=== PATIENT | male | born 1970 | race Caucasian/White ===

== ENCOUNTER 2024-07-17 20:38 | Emergency (ER) | payer SELFPAY ==
[2024-07-17 20:41] VITALS: BP 140/81
[2024-07-17 20:45] VITALS: BMI 15.7
[2024-07-17 20:45] LABS: Glucose - Point of Care 194 mg/dl (70-99)
[2024-07-17 21:00] VITALS: BP 140/81
[2024-07-17 21:15] LABS: Glucose - Point of Care 244 mg/dl (70-99)
[2024-07-17 21:42] LABS: % Basophils 0.3 % (0-2); % Eosinophils 1.3 % (0-6); % Immature Granulocytes 0.4 % (0-0.5); % Lymphocytes 5.9 % (20.5-51.1); % Monocytes 4.2 % (1.7-9.3); % Neutrophils 87.9 % (42.2-75.2); Absolute Eosinophils 0.2 10^3/uL (0-0.7); Absolute Immature Granulocytes 0.1 10^3/uL (0-0.05); Absolute Lymphocytes 0.8 10^3/uL (1.2-3.4); Absolute Monocytes 0.6 10^3/uL (0.1-0.6); Absolute Neutrophils 12.4 10^3/uL (1.4-6.5); Mean Corp Hgb Conc. 32.5 g/dL (33.0-37.0); Mean Corpuscular Hgb 29.9 pg (27.0-31.0); Mean Platelet Volume 9.7 fL (7.4-10.4); Nucleated Red Blood Cells % 0 % (-); Platelet Count 274 10^3/uL (130-400); Red Blood Cell Count 4.35 10^6/uL (4.70-6.10); Red Cell Dist. Width 12.9 % (11.5-14.5); White Blood Cell Count 14.2 10^3/uL (4.8-10.8)
[2024-07-17 21:59] LABS: ALT (SGPT) 14 U/L (0-50); AST (SGOT) 19 U/L (17-59); Alkaline Phosphatase 94 U/L (38-126); Blood Urea Nitrogen 21 mg/dl (9-20); Carbon Dioxide 23 mmol/L (22-30); Chloride 102 mmol/L (98-107); Estimated Creatinine Clearance 62 ml/min; Glucose 204 mg/dl (70-99); Sodium 135 mmol/L (135-145); Total Bilirubin 0.4 mg/dl (0.2-1.3); Total Protein 6.5 g/dl (6.3-8.2); eGFR > 60.00
[2024-07-17 22:00] VITALS: BP 158/79
[2024-07-17 22:09] LABS: Glucose - Point of Care 257 mg/dl (70-99)
[2024-07-17 23:00] VITALS: BP 142/79
--- NOTE | 2024-07-17 23:20 | ED.GENMED ---
History of Present Illness
General
Chief Complaint: Blood Sugar Problem
Source: patient and ambulance crew
Exam Limitations: none
Time Seen by Provider: 07/17/24 20:53
Nursing documentation reviewed up to this point in time: agreed with
History of Present Illness
History of Present Illness:
Patient with history of of insulin-dependent diabetes, on insulin sliding scale, presents to ED secondary to low blood sugar. Per ambulance, patient's roommate found the patient unresponsive. When paramedics arrived, his blood sugar was 21.
Patient was given glucagon with immediate relief in symptoms, including mental status. Upon arrival, patient has no complaints. Patient did state that over the course of the night, he did experience diaphoresis, with concern for low blood sugar.
Patient treated himself with glass of Coca-Cola, with improvement symptoms. Patient has had 2 additional episodes of low blood sugar since . Patient has an appointment with his process assistant next month. Denies recent illness.
Denies recent change in medications or diet.
Review of Systems
Review of Systems
Allergies reviewed?: Yes
All Other Systems: ROS reviewed and negative except as documented in HPI and ROS
Constitutional: Reports no symptoms
Respiratory: Reports no symptoms
Cardiac: Reports no symptoms
ABD/GI: Reports no symptoms
Musculoskeletal: Reports no symptoms
Skin: Reports no symptoms
Neurological: Reports other (mental status change)
Phy Exam
Physical Exam
Physical Exam:
Physical Exam
General: no apparent distress, not acutely ill. afebrile
Head: nc/at. eomi
Neck: supple. no meningeal signs.
Heart: s1/s2 regular rate and rhythm, no murmur. equal radial pulses.
Lungs: no acute respiratory distress. clear bilaterally
Abdomen: normal bowel sounds. not tender.
Neuro: alert and oriented. no focal neurological deficits
Skin: no rash
Psychiatric: well kept. interactive and cooperative
Extremities: no edema. no calf tenderness.
Course
Orders/Labs/Results
Orders:
Orders
07/17/24 20:40
Cardiac Monitoring- Treatment ONCE
IV Insert/Care/Rem.- Treatment PRN
07/17/24 20:41
Electrocardiogram (*1) Urgent
Reason for Study: Abdominal Pain
EKG- Treatment ONCE
07/17/24 20:51
Complete Blood Count/With Diff Urgent
Comprehensive Metabolic Panel Urgent
Abnormal Lab Results
07/17/24 07/17/24 07/17/24
20:42 20:51 21:14
WBC 14.2 H 10^3/uL
(4.8-10.8)
RBC 4.35 L 10^6/uL
(4.70-6.10)
MCHC 32.5 L g/dL
(33.0-37.0)
Abs Immat Gran (auto) 0.1 H 10^3/uL
(0-0.05)
Absolute Neuts (auto) 12.4 H 10^3/uL
(1.4-6.5)
Absolute Lymphs (auto) 0.8 L 10^3/uL
(1.2-3.4)
Neutrophils % 87.9 H %
(42.2-75.2)
Lymphocytes % 5.9 L %
(20.5-51.1)
BUN 21 H mg/dl
(9-20)
Glucose 204 H mg/dl
(70-99)
POC Glucose 194 H mg/dl 244 H mg/dl
(70-99) (70-99)
07/17/24 07/17/24
22:07 23:21
WBC
RBC
MCHC
Abs Immat Gran (auto)
Absolute Neuts (auto)
Absolute Lymphs (auto)
Neutrophils %
Lymphocytes %
BUN
Glucose
POC Glucose 257 H mg/dl 276 H mg/dl
(70-99) (70-99)
07/17/24 20:51
07/17/24 20:51
Vital Signs
Initial and Last Documented VS:
Initial Vital Signs
Temp Pulse Resp BP Pulse Ox
98.2 F 105 18 140/81 99
07/17/24 20:41 07/17/24 20:41 07/17/24 20:41 07/17/24 20:41 07/17/24 20:41
Last Documented Vital Signs
Temp Pulse Resp BP Pulse Ox
98.2 F 112 14 142/79 95
07/17/24 20:41 07/17/24 23:15 07/17/24 23:15 07/17/24 23:00 07/17/24 23:15
MDM/Problems Addressed
MDM/Problems Addressed:
Patient given sandwich along with other food items. Blood sugar remained stable during extended course of observation. Leukocytosis noted, likely reactive, without any evidence of focal infection. As such, patient will be discharged from ED in
stable condition, with recommendation to speak with his process assistant upon discharge, to modify his current insulin sliding scale. Patient expresses understanding at time of discharge.
*Critical Care Note
Total Time (30-74mins, 75-104mins- exclusive of procedures): Not Applicable
ED Attending Note
-
Portions of this chart may have been created with voice recognition software.� Occasional wrong word or��sound alike� substitutions may have occurred due to the inherent limitations of voice recognition software.
Discharge Plan
Departure
Patient Disposition: Home (Routine Discharge)
Date of Disposition: 07/17/24
Time of Disposition: 23:25
Patient with high blood pressure during this ER visit?: Yes
Discharge Problem:
Hypoglycemia
Instructions: Low blood sugar in people with diabetes
Referrals:
Rubin Thompson DO [Family Provider] -
Activity Restrictions/Additional Instructions:
As discussed, please follow-up with your process assistant for further evaluation and treatment, upon discharge.
Interventions
Interventions:
*Risk Screen - Suicide Last Done: 07/17/24 20:45
*General Assessment Last Done: 07/17/24 23:59
*Neglect/Abuse Screening Last Done: 07/17/24 20:44
ED- Fall Risk Assessment Last Done: 07/17/24 20:47
*ED COVID-19 Vaccine History Last Done: 07/17/24 20:44
*Nursing Disposition Last Done: 07/17/24 23:59
ED- Neurological Assessment Last Done: 07/17/24 20:46
Discharge Date and Time
Discharge Date/Time: 07/18/24 00:02
Print Language: LAO
[2024-07-17 23:22] LABS: Glucose - Point of Care 276 mg/dl (70-99)
== END 2024-07-18 00:02 | disposition home or self-care (01) ==
LOC: EMR 20:38
PROVIDERS: EMERGENCY PHYSICIAN Emergency Medicine; FAMILY PHYSICIAN Internal Medicine Endocrinology, Diabetes & Metabolism
DX: E11.649 Type 2 diabetes mellitus with hypoglycemia without coma (principal); D72.829 Elevated white blood cell count, unspecified; Z79.4 Long term (current) use of insulin
CPT/HCPCS: 99283; 80053; 82962; 85025; 93005